=== PATIENT | male | born 1970 | race Caucasian/White ===

== ENCOUNTER → 2017-10-03 07:40 | Outpatient (CLI) | payer MEDICARE ==
[2016-02-28 10:40] VITALS: BMI 59.5
[~2017-10-03 07:40] MED LIST: CARDURA4 MG PO; CELEXA10 MG PO; COZAAR100 MG PO; FLUTICASONE PRO16 GM NASAL; FUROSEMIDE40 MG PO; GLUCOPHAGE500 MG PO; K-DUR20 MEQ PO; PRILOSEC10 MG PO
== END | disposition home or self-care (01) ==
LOC: D.RT 09-27 08:00 → D.RAD 09-27 09:00 → D.RT 07:40
DX: J45.909 Unspecified asthma, uncomplicated (principal)

== ENCOUNTER → 2019-08-11 09:02 | Outpatient (CLI) | payer MEDICARE ==
[2016-02-28 10:40] VITALS: BMI 59.5
[~2019-08-11 09:02] MED LIST changes: +DIOVAN160 MG PO; +NORVASC5 MG PO; +PRAVACHOL20 MG PO
== END | disposition home or self-care (01) ==
LOC: D.HCCARDIO 09:02
PROVIDERS: ATTEND Internal Medicine Cardiovascular Disease
DX: I20.9 Angina pectoris, unspecified (principal)

== ENCOUNTER → 2019-08-14 09:41 | Outpatient (CLI) | payer MEDICARE ==
[2016-02-28 10:40] VITALS: BMI 59.5
== END | disposition home or self-care (01) ==
LOC: D.HCCECHO 09:41
PROVIDERS: ATTEND Internal Medicine Cardiovascular Disease
DX: I10 Essential (primary) hypertension (principal)

== ENCOUNTER 2019-09-15 10:55 | Outpatient (CLI) | payer MEDICARE ==
[~2019-09-15] VITALS: Ht 180.3 cm; Wt 177.3 kg
--- NOTE | ~2019-09-15 | HEMODYNAMI ---
PATIENT:SEVEN IYER MEDICAL RECORD: [id number] : 68 LOCATION:[facility] ADMISSION DATE: 09/15/19 Generatedon:09/15/201913:55 Patient name: SEVEN IYER Patient #: [id number] SSN: [id number] : 1970 Date of study: 09/15/2019 Page: Of Hemodynamic Procedure Report Patient Data Patient Demographics Procedure consent was obtained First Name: SEVEN Gender: Male Last Name: JAYLON : 1970 Middle Initial: C Age: 49 year(s) Patient #: [id number] Race: SSN: [id number] Additional ID: [id number] Contact details Address: [address] [place] [address] State: [place] City: [place] Zip code: [address] Past Medical History Allergies Allergen Reaction Date Comments Reported Other allergy 09/15/2019 JOSE MANUEL INHIBITORS, ASA, PCN Admission Admission Data Admission Date: 09/15/2019 Admission Time: 10:55 Lab Results Lab Result Date: 09/15/2019 Lab Result Time: 0:00 Biochemistry Name Units Result Min Max BUN mg/dl 12 --(-*--)-- 7 18 Creatinine mg/dl 0.8 --(-*--)-- 0.6 1.3 eGFR ml/min 90 --(*---)-- 90 120 NONAFRICAN CBC Name Units Result Min Max Hematocrit % 46 --(-*--)-- 42 54 Hemoglobin g/dl 14.9 --(-*--)-- 13.5 17.5 Procedure Procedure Types Cath Procedure Diagnostic Procedure C [facility] w/Coron[facility] Procedure Description Procedure Date Procedure Date: 09/15/2019 Procedure Start Time: 13:36 Procedure End Time: 13:53 Procedure Staff Name Function Maximus Allen MD Performing Physician Amanda Linda RT Monitor Mirian Rodriguez RT Scrub Alpesh Rhodes RN Nurse Procedure Data Cath Procedure Fluoroscopy Diagnostic fluoroscopy Total fluoroscopy Time: 5.1 time: 5.1 min min Diagnostic fluoroscopy Total fluoroscopy dose: dose: 1244 mGy 1244 mGy Contrast Material Contrast Material Type Amount (ml) Isovue 300 87 Entry Location Entry Primary Successful Side Size Upsize Upsize Entry Closure Duval ccessful Closure Location (Fr) 1 (Fr) 2 (Fr) Remarks Device Remarks Radial Right 6 Fr Mechanical artery Short Compression Estimated blood loss: 5 ml Diagnostic catheters Device Type Used For End Catheter Placement DIAGNOSTIC Chicho 110cm Procedure 5Fr catheter ([id number]) DIAGNOSTIC AR1 MOD 5Fr Procedure catheter ([id number]) DIAGNOSTIC AR2 MOD 5 Fr Procedure catheter ([id number]) Procedure Complications No complications Procedure Medications Medication Administration Route Dosage 0.9% NaCl I.V. 100 ml/hr Oxygen etCO2 Nasal cannula 2 l/min Heparin Flush Bag added to field 2 bags (1000units/500ml NS) Lidocaine 2% added to field 20 Radial Cocktail added to field 1 syringe (Verapamil 2mg/Nitro 400mcg/Heparin 1500units) Versed I.V. 1 mg Fentanyl I.V. 50 mcg Versed I.V. 1 mg Fentanyl I.V. 50 mcg Radial Cocktail I.A. 1 syringe (Verapamil 2mg/Nitro 400mcg/Heparin 1500units) Hemodynamics Rest HGB: 14.9 (g/dl) Heart Rate: 65 (bpm) Pressure Samples Time Site Value (mmHg) Purpose Heart Use Rate(bpm) 13:40 LV 131/-8,11 Snapshot 82 Gradients Valve Time Site Site Mean SEP/DFP Peak To Heart Use 1 2 (mmHg) (sec/min) Peak Rate (mmHg) (bpm) Aortic 13:40 LV AO 79 Snapshots Pre Cath Intra NCS Post Cath Vital Signs Time Heart Resp SPO2 etCO2 NIBP (mmHg) Rhythm Pain Sedation Rate (ipm) (%) (mmHg) Status Level (bpm) 13:26:23 64 13 94 38.4 132/84(109) NSR 0 (11) 10(A) , No pain 13:30:53 65 13 93 42.1 128/76(99) NSR 0 (11) 10(A) , No pain 13:35:19 66 14 93 41.4 127/82(105) NSR 0 (11) 10(A) , No pain 13:39:48 79 18 94 25.1 107/75(93) NSR 0 (11) 9(A) , No pain 13:44:06 72 15 94 40.6 118/80(98) NSR 0 (11) 9(A) , No pain 13:48:32 63 14 94 41.3 117/74(97) NSR 0 (11) 9(A) , No pain 13:52:58 62 12 94 39.1 114/72(98) NSR 0 (11) 9(A) , No pain Medications Time Medication Route Dose Verified Delivered Reason Notes Effectiveness by by 13:25:47 0.9% NaCl I.V. 100 Alpesh Alpesh Per ml/hr Meagan Rhodes physician RN RN 13:25:56 Oxygen etCO2 2 l/min Alpesh Alpesh for low 02 Nasal Lorigan Lorjohn sats cannula RN RN 13:26:06 Heparin Flush added 2 bags Alpesh Alpesh used for Bag to Lorigan Meagan procedure (1000units/500ml field RN RN NS) 13:26:16 Lidocaine 2% added 20ml Alpesh Alpesh for local to vial Lorigan Lorigan anesthetic RN RN 13:26:29 Radial Cocktail added 1 Alpesh Alpesh used for (Verapamil to syringe Lorigan Lorigan procedure 2mg/Nitro RN RN 400mcg/Heparin 1500units) 13:35:19 Versed I.V. 1 mg Alpesh Alpesh for sedation Meagan Rhodes RN RN 13:35:28 Fentanyl I.V. 50 mcg Alpesh Alpesh for anxiety Meagan Rhodes RN RN 13:37:13 Versed I.V. 1 mg Alpesh Alpesh for sedation Meagan Rhodes RN RN 13:37:19 Fentanyl I.V. 50 mcg Alpesh Alpesh for anxiety Meagan Rhodes RN RN 13:39:27 Radial Cocktail I.A. 1 Alpesh Maximus for (Verapamil syringe Meagan Allen MD vasodilation 2mg/Nitro RN 400mcg/Heparin 1500units) Procedure Log Time Note 13:11:24 Informed consent obtained and on chart 13:11:43 Alpesh Rhodes RN sent for patient. Start room use. 13:11:46 Procedure Status Elective Heart Cath (OP). 13:11:48 Time tracking: Regular hours (M-F 7:00 - 5:00) 13:11:52 Plan of Care:Hemodynamics will remain stable., Cardiac rhythm will remain stable., Comfort level will be maintained., Respiratory function will remain adequate., Patient/ family verbilizes understanding of procedure., Procedure tolerated without complication., Recovers from procedure without complications.. 13:12:02 H&P Date Dictated: 09/01/2019 Within 30 days and on chart., H&P Addendum completed by physician on day of procedure. (MUST COMPLETE FOR ALL OUTPATIENTS). 13:12:24 Patient allergic to Other allergyACE INHIBITORS, ASA, PCN 13:14:28 Lab Result : BUN 12 mg/dl 13:14:29 Lab Result : eGFR NONAFRICAN 90 ml/min 13:14:29 Lab Result : Creatinine 0.8 mg/dl 13:14:29 Lab Result : Hemoglobin 14.9 g/dl 13:14: Lab Result : Hematocrit 46 % 13:15:10 Stress Test: yes; normal INFERIOR, ANTERIOR 13:17:04 Patient received from Pre/Post Procedure Room to CCL 1 Alert and oriented. Tansferred to table in Supine position. 13:17:05 Warm blankets applied, and guerline hugger turned on for patient comfort. 13:17:05 Correct patient and procedure confirmed by team. 13:17:06 ECG and BP/O2 sat monitors applied to patient. 13:25:00 Vital chart was started 13:25:01 Baseline sample Acquired. 13:25:05 Full Disclosure recording started 13:25:05 Pre-procedure instructions explained to patient. 13:25:06 Pre-op teaching completed and patient verbalized understanding. 13:25:07 Family in patients room. 13:25:10 Is the patient allergic to Iodine/contrast media? No. 13:25:16 Is patient on blood thinner?No 13:25:18 Patient diabetic? Yes. 13:25:20 If diabetic: On Metformin? No 13:25:23 Previous problem with sedation/anesthesia? No ? 13:25:25 Snore? Yes 13:25:26 Sleep apnea? Yes 13:25:27 Deviated septum? No 13:25:28 Opens mouth fully? Yes 13:25:28 Sticks out tongue? Yes 13:25:31 Airway obstruction? Yes COPD 13:25:34 Dentures? No ? 13:25:36 Pre procedure: right dorsailis pedis pulse 1+ Palpable, but thready & weak; easily obliterated 13:25:38 Modified Gabino's test Ulnar < 7 seconds 13:25:41 Patient pain scale 0/10 ?. 13:25:47 0.9% NaCl 100 ml/hr I.V. was administered by Alpesh Rhodes RN; Per physician; Verbal order read back and verified. 13:25:53 IV patent on arrival in left forearm with 0.9% NaCl at [facility]. 13:25:56 Oxygen 2 l/min etCO2 Nasal cannula was administered by Alpesh Rhodes RN; for low 02 sats; Verbal order read back and verified. 13:25:57 Lab results completed and on chart. 13:26:02 Right Radial & Right Groin area was prepped with chlora-prep and draped in sterile fashion 13:26:06 Heparin Flush Bag (1000units/500ml NS) 2 bags added to field was administered by Alpesh Rhodes RN; used for procedure; Verbal order read back and verified. 13:26:16 Lidocaine 2% 20ml vial added to field was administered by Alpesh Rhodes RN; for local anesthetic; Verbal order read back and verified. 13:26:29 Radial Cocktail (Verapamil 2mg/Nitro 400mcg/Heparin 1500units) 1 syringe added to field was administered by Alpesh Rhodes RN; used for procedure; Verbal order read back and verified. 13:28:11 Alarms reviewed by R. N. 13:28:12 Sharps counted by scrub and verified by R.N. 13:29:57 Risk of Mortality: .2 13:29:59 Risk of blood transfusion: .2 13:30:03 Risk of FLORENTINO: .4 13:30:10 Use device set Radial Dx or PCI 13:30:11 ACIST Syringe (71762) opened to sterile field. 13:30:12 Bag Decanter () opened to sterile field. 13:30:12 ACIST Hand Control (64528) opened to sterile field. 13:30:12 ACIST Manifold (86177) opened to sterile field. 13:30:13 Tegaderm 4 x 4 (1626W) opened to sterile field. 13:30:14 Medline Cath Pack ([id number]) opened to sterile field. 13:30:14 MBrace Wrist Support ([id number]) opened to sterile field. 13:30:15 NEEDLE Cook 21G 4cm Radial (I45742) opened to sterile field. 13:30:16 EMERALD Guide Wire (692-725) opened to sterile field. 13:30:16 SHEATH 6FR RAIN (8905631) opened to sterile field. 13:32:00 --------ALL STOP TIME OUT------ 13:32:00 Final Timeout: patient, procedure, and site verified with staff and physician. All members of the team are in agreement. 13:32:02 Right Radial & Right Groin site verified by team. 13:32:04 Fire Safety Assessment: A--An alcohol-based skin anteseptic being used preoperatively., C--Open oxygen or nitrous oxide is being used., D--An ESU, laser, or fiber-optic light is being used. 13:32:07 Physical assessment completed. ASA score P 2 - A patient with mild systemic disease as per Maximus Allen MD. 13:32:14 1) 90+ Normal kidney functon but urine findings or structural abnormalities or genetic trait point to kidney disease. 13:32:17 Maximum allowable contrast dose (3.7 X eGFR X 0.75)250 ml. 13:32:20 Sedation plan: IV Moderate Sedation Medication:Versed, Fentanyl 13:35:19 Versed 1 mg I.V. was administered by Alpesh Rhodes RN; for sedation; Verbal order read back and verified. 13:35:28 Fentanyl 50 mcg I.V. was administered by Alpesh Rhodes RN; for anxiety; Verbal order read back and verified. 13:36:14 Procedure started. 13:36:19 Zero performed for pressure channel P1 13:36:27 Local anesthetic to right radial artery with Lidocaine 2% by Maximus Allen MD.INITIAL ACCESS ONLY 13:37:13 Versed 1 mg I.V. was administered by Alpesh Rhodes RN; for sedation; Verbal order read back and verified. 13:37:19 Fentanyl 50 mcg I.V. was administered by Alpesh Rhodes RN; for anxiety; Verbal order read back and verified. 13:38:28 A 6 Fr Short sheath was inserted into the Right Radial artery 13:38:53 A DIAGNOSTIC Chicho 110cm 5Fr catheter ([id number]) was advanced over the wire and used for Procedure. 13:39:27 Radial Cocktail (Verapamil 2mg/Nitro 400mcg/Heparin 1500units) 1 syringe I.A. was administered by Maximus lAlen MD; for vasodilation; Verbal order read back and verified. 13:39:38 LV gram done using JO 13:39:40 Injector settings: Ml/sec: 5, Volume: 15, 13:40:05 LV hemodynamics recorded. 13:40:21 EF : 50 % 13:42:31 LCA angiography performed. 13:43:53 UNABLE TO ENGAGE RCA 13:43:55 Catheter exchanged over wire. 13:44:58 A DIAGNOSTIC AR1 MOD 5Fr catheter ([id number]) was advanced over the wire and used for Procedure. 13:46:37 UNABLE TO ENGAGE RCA 13:46:39 Catheter exchanged over wire. 13:47:36 A DIAGNOSTIC AR2 MOD 5 Fr catheter ([id number]) was advanced over the wire and used for Procedure. 13:48:32 RCA angiography performed. 13:48:54 Catheter removed. 13:48:59 ACCDominant side:Right 13:49:19 Procedure ended.(Physican Out) 13:49:27 TR BAND Large ([id number]) opened to sterile field. 13:51:39 Sheath removed intact; hemostasis achieved with Mechanical Compression to the Right Radial artery. 13:51:44 Fluoroscopy time 05.10 minutes. 13:51:48 Fluoroscopy dose: 1244 mGy 13:51:48 Flurop Dose total: 1244 13:51:55 Dose Area Product 15761 mGy/cm. 13:51:59 Contrast amount:Isovue 300 87ml. 13:52:01 Maximum allowable dose exceeded? No. 13:52:01 Sharps counted by scrub and verified by R.N. 13:52:04 Crystal band inflated with 12cc of air. 13:52:08 Post-procedure physical assessment completed. ASA score P 2 - A patient with mild systemic disease as per Maximus Allen MD. 13:52:11 Post procedure rhythm: sinus rhythm 13:52:50 Estimated blood loss: 5 ml 13:52:51 Post procedure instruction explained to patient.Patient verbalizes understanding. 13:52:52 Patient needs reinforcement of post procedure teaching. 13:53:37 Procedure and supply charges have been captured, reviewed, submitted and are correct. 13:53:39 Procedure Complication : No complications 13:53:41 Vital chart was stopped 13:53:42 [facility] Findings: mild to moderate CAD (<70%) 13:53:44 Operative report dictated upon procedure completion. 13:53:45 See physician's report for complete and final results. 13:53:47 Report given to Pre/Post Procedure Room. 13:53:49 Patient transfered to Pre/Post Procedure Room with Bed. 13:53:51 Procedure ended. 13:53:51 Full Disclosure recording stopped 13:53:56 End room use (Document Last) 13:54:31 End room use (Document Last) 13:54:52 End room use (Document Last) Device Usage Item Name Manufacture Quantity Catalog Hospital Part Current Minima l Lot# / Number Charge Number Stock Stock Serial# Code ACIST Acist 1 00798 220064 436083 887589 20 Syringe Medical (37291) Systems Inc Bag Microtek 1 2001S 826266 36942 371662 5 Decanter Medical Inc. () ACIST Hand Acist 1 61933 951013 119999 874443 5 Control Medical (27672) Systems Inc ACIST Acist 1 73580 857472 272321 254987 5 Manifold Medical (57295) Systems Inc Tegaderm 4 3M 1 1626W 269426 343523 642685 5 x 4 (1626W) Medline Medline 1 [id number] 341732 23761 045269 5 Cath Pack ([id number]) MBrace Advanced 1 140-0250-00 819224 70117 228319 5 Wrist Vascular Support Dynamics ([id number]) NEEDLE Cook Cook Medical 1 [id number] 483597 541718 263451 5 21G 4cm Radial (V40712) EMERALD Cardinal 1 502-455 117534 434464 235649 5 Guide Wire Health (502455) SHEATH 6FR Cardinal 1 [id number] 658330 2498000 714734 5 [facility] (9703256) DIAGNOSTIC Terumo 1 405023 788715 120051 421007 5 Chicho 110cm 5Fr catheter (620166) DIAGNOSTIC Cardinal 1 [id number] 444430 614923 511907 15 AR1 MOD 5Fr Health catheter ([id number]) DIAGNOSTIC Cardinal 1 [id number] 636353 354123 922995 20 AR2 MOD 5 Health Fr catheter ([id number]) TR BAND Terumo 1 [id number] 566941 501646 817365 40 Large ([id number]) Signature Audit [place] Stage Time Signature Unsigned Intra-Procedure 09/15/2019 Alpesh 1:54:53 PM Meagan JAEGER Intra-Procedure 09/15/2019 Maximus Allen MD 1:55:30 PM [place] [id number]
[~2019-09-15 10:55] MED LIST changes: -DIOVAN160 MG PO; -NORVASC5 MG PO; -PRAVACHOL20 MG PO
[2019-09-15] MEDS ORDERED: PRAVACHOL20 MG PO (11:42)
[2019-09-15] MEDS ORDERED: NORVASC5 MG PO (11:42)
[2019-09-15] MEDS ORDERED: DIOVAN160 MG PO (11:43)
[2019-09-15 11:53] VITALS: BP 137/85; Ht 180.3 cm; Wt 177.3 kg
[2019-09-15 12:18] LABS: CALC OSMOLALITY 282 mosm/kg (275-300); CALCIUM 8.9 mg/dL (8.5-10.1); CARBON DIOXIDE 28.4 mmol/L (21.0-32.0); CHLORIDE - SERUM 107 mmol/L (98-107); CREATININE - SERUM 0.8 mg/dL (0.6-1.3); GLUCOSE 105 mg/dL (74-106); SODIUM 142 mmol/L (136-145); UREA NITROGEN 12 mg/dL (7-18); eGFR NON AFRICAN AMERICAN > 90 mL/min (90-120)
[2019-09-15 12:50] LABS: BASOPHILS 0.3 % (0-2); EOSINOPHILS 4.7 % (0-7); HEMOGLOBIN 14.9 g/dL (13.5-17.5); IMMATURE GRANULOCYTES 0.3 % (0-5); LYMPHOCYTES 34.5 % (15-50); MCHC 32.4 g/dL (31.0-37.0); MCV 92.6 fL (80.0-100.0); MEAN PLATELET VOLUME 11.1 fL (7.4-10.4); MONOCYTES 6.7 % (2-11); NEUTROPHILS 53.5 % (40-80); PLATELET COUNT 253 10x3/uL (130-400); RBC 4.97 10x6/uL (4.20-6.10); RDW 13.7 % (11.5-14.5); WBC 6.4 10x3/uL (4.8-10.8)
--- NOTE | 2019-09-15 14:20 | NUR ---
RIGHT RADIAL SITE WITHOUT BLEEDING OR HEMATOMA NOTED, FINGERS WARM AND PINK, DENIES NUMBNESS AND TINGLING. DENIES NEEDS. VSS, HR 60 NSR, NIBP 112/70, RESPS 14 AND UNLABORED, SAT 96% ON 2LNC. /FAMILY MEMBER AT BEDSIDE.
--- NOTE | 2019-09-15 14:50 | NUR ---
RIGHT RADIAL SOFT, NO HEMATOMA/BLEEDING NOTED. FINGERS WARM, DENIES NUMBNESS/TINGLING. HR 60 NSR, NIBP 119/76. TR BAND REMAINS IN PLACE W 12CC AIR INFLATED. AND FAMILY MEMBER AT BEDSIDE. PT CONTINUES TO DECLINE FOOD/DRINK
--- NOTE | 2019-09-15 15:12 | NUR ---
RIGHT RADIAL SOFT, NO BLEEDING OR HEMATOMA NOTED. FINGERS WARM, NO NUMBNESS/TINGLING REPORTED. VSS, HR SB 53, NIBP 112/56. O2 SAT 97% ON 2LNC. AND FAMILY MEMBER AT BEDSIDE.
--- NOTE | 2019-09-15 15:25 | NUR ---
R RADIAL SOFT, NO BLEEDING OR HEMATOMA. 2ML AIR RELEASED FROM TR BAND. PT SITTING UP IN BED, ZUNILDA SPRITE AND SANDWICH. FAMILY AT BEDSIDE. VSS, HR 74 NSR, BP 124/83
--- NOTE | 2019-09-15 15:40 | NUR ---
RELEASED 4ML AIR FROM TR BAND. WRIST SOFT, NO BLEEDING HEMATOMA NOTED. VSS, HR 68, NSR. NIBP 121/79. FAMILY AT BEDSIDE. PT TOLERATED DIET AND LIQUIDS WITHOUT COMPLAINT. CONT TO MONITOR R WRIST.
--- NOTE | 2019-09-15 15:50 | NUR ---
R RADIAL SOFT, NO BLEEDING OR HEMATOMA. RELEASED 2ML AIR. COUNSELED PT ON 48HRS OF LIMITED ACTIVITY, AND NO HEAVY LIFTING FOR FOUR DAYS. STATES HE IS OFF WORK TIL SATURDAY AND WILL HAVE NO TROUBLE COMPLYING.
--- NOTE | 2019-09-15 16:00 | NUR ---
TR BAND DEFLATED TO 1ML AIR REMAINING. MONITORING DC. PT INSTRUCTED ON NO LIFTING OR HEAVY USE R ARM X 4 DAYS. IV DC, TIP INTACT. DRESSING W 'S HELP.
--- NOTE | 2019-09-15 16:10 | NUR ---
TR BAND REMOVED, TEGADERM AND 2X2 PLACED. DC INSTRUCTIONS REVIEWED W PT AND .
--- NOTE | 2019-09-15 16:25 | NUR ---
DC HOME W VIA PRIVATE CAR. R WRIST REMAINS CDI, SOFT, NO BLEEDING OR HEMATOMA. ALL BELONGINGS W PT.
== END 2019-09-15 16:25 ==
LOC: D.CATH 10:55
PROVIDERS: ATTEND Internal Medicine Cardiovascular Disease
DX: I20.9 Angina pectoris, unspecified (principal); R94.30 Abnormal result of cardiovascular function study, unspecified